=== PATIENT | female | born 1990 | race Caucasian/White ===

== ENCOUNTER 2017-04-18 12:06 | Emergency (ER) | payer BC ==
[~2017-04-18] VITALS: Ht 162.6 cm; Wt 115.9 kg
[~2017-04-18 12:06] MED LIST: ALBUTEROL SULFAT3 M3; BENADRYL25 M2; BIRTH CONTROL; DUO-KAPS1 CAP; PRILOTC; STOOL SOFTENER100 M2 PO; XANAX 0.5MG0.5 MG PO; ZANTAC 150MG T150 MG PO; ZOLOFT 100MG100 MG PO; ZYRTEC 10MG10 MG PO
[2017-04-18 12:07] VITALS: BP 139/89; TEMP 99
[2017-04-18] MEDS ORDERED: SINGULAIR 110 MG/TAB PO (12:36)
[2017-04-18] MEDS ORDERED: PROZAC 10MG10 MG (12:36)
[2017-04-18] MEDS ORDERED: ULTRAM 50MG TAB50 MG PO (13:30)
[2017-04-18] MEDS ORDERED: MAGIC MOUTH PO (13:30)
[2017-04-18 14:23] VITALS: PULSE 72
== END 2017-04-18 14:24 | disposition home or self-care (01) ==
LOC: COL.ER 12:06
DX: J35.8 Other chronic diseases of tonsils and adenoids (principal); F41.9 Anxiety disorder, unspecified